=== PATIENT | female | born 1980 | race American Indian/Alaskan Native ===

== ENCOUNTER 2016-07-11 14:23 | Emergency (ER) | payer BC ==
[2016-07-11 14:58] LABS: Eosinophils % (Auto) 4.1 % (0.0-4.3); Hematocrit 37.8 % (30.3-42.9); Hemoglobin 11.6 gm/dl (10.1-14.3); Mean Corpuscular HGB Conc 31 % (30-34); Mean Corpuscular Volume 73 fl (79-97); Platelet Count 198 K/mm3 (140-440); Red Blood Count 5.21 M/mm3 (3.65-5.03); Red Cell Distribution Width 15.7 % (13.2-15.2); White Blood Count 4.8 K/mm3 (4.5-11.0)
[2016-07-11 15:18] LABS: Mean Corpuscular Hemoglobin 22 pg (28-32)
[2016-07-11 15:22] LABS: Anion Gap 17 mmol/L; BUN/Creatinine Ratio 13.33; Blood Urea Nitrogen 8 mg/dL (7-17); Calcium 9.1 mg/dL (8.4-10.2); Carbon Dioxide 24 mmol/L (22-30); Chloride 105.1 mmol/L (98-107); Creatine Kinase 111 units/L (30-135); Glucose 97 mg/dL (65-100); Lipase 30 units/L (13-60); Sodium 142 mmol/L (137-145)
[2016-07-11 15:24] LABS: Creatine Kinase MB < 1.0 ng/mL (0.0-4.0)
[2016-07-11 16:03] LABS: Bilirubin,Urine NEG (Negative); Blood,Urine SM (Negative); Ketones,Urine NEG (Negative); Leukocyte Esterase,Urine NEG (Negative); Mucus,Urine 3+ /HPF; Nitrite,Urine NEG (Negative); Protein,Urine <15 mg/dL mg/dL (Negative); Urobilinogen,Urine < 2.0 mg/dL (<2.0)
[2016-07-11] MEDS ORDERED: ZOFRAN ODT PO ONE (19:44)
[2016-07-11] MEDS ORDERED: MORPHINE IM ONE (19:44)
--- NOTE | 2016-07-11 19:48 | Emergency Department Report ---
HPI - General Chief Complaint: Chest Pain Time Seen by Provider: 07/11/16 19:32 - HPI HPI: The patient is a 35-year-old female presents for evaluation of chest pain. The patient reports chest pain for the past 2 days, exudates in severity, sharp in quality, right-sided in location, exacerbated with movement of the chest wall. The patient denies fever, cough, dyspnea, syncope, hemoptysis, unilateral leg swelling, oral contraceptive use, recent immobilization, history of DVT or PE, recent cancer. ED Past Medical Hx - Past Medical History Previous Medical History?: Yes Hx Headaches / Migraines: Yes Hx Psychiatric Treatment: Yes (Depression) Additional medical history: depression - Surgical History Past Surgical History?: Yes Additional Surgical History: x 2 - Social History Smoking Status: Never Smoker Substance Use Type: None - Medications Home Medications: Home Medications Medication Instructions Recorded Confirmed Last Taken Type Cyclobenzaprine HCl [Flexeril 5 MG 5 mg PO Q8HR PRN #15 tab 07/11/16 Unknown Rx TAB] Omeprazole Magnesium [PriLOSEC Otc] 20 mg PO QDAY #14 tablet. 07/11/16 Unknown Rx ED Review of Systems ROS: Stated complaint: CHEST PAINS Other details as noted in HPI Constitutional: denies: fever ENT: denies: throat or neck pain Respiratory: denies: cough, shortness of breath Cardiovascular: reports chest pain Endocrine: denies unexplained weight loss or gain Gastrointestinal: denies: abdominal pain, nausea Genitourinary: denies: dysuria Musculoskeletal: denies: leg swelling Skin: denies: rash Neurological: denies: headache Hematological/Lymphatic: denies: easy bleeding or easy bruising Psych: denies sadness or hopelessness Physical Exam - Physical Exam Vital Signs: Vital Signs 07/11/16 14:39 Temperature 98.1 F Pulse Rate 73 Respiratory 20 Rate Blood Pressure 102/70 O2 Sat by Pulse 100 Oximetry Physical Exam: General: well-nourished, well-developed, no acute distress Head: Normocephalic, atraumatic Eyes: normal sclera ENT: Mucous membranes are pink and moist Neck: trachea midline, neck supple, No neck stiffness, no cervical adenopathy Respiratory: Breath sounds equal bilaterally, no wheezing, rales, or rhonchi Cardio: S1 and S2 present, no murmurs, rubs, gallops, capillary refill is brisk Abdomen: Normoactive bowel sounds, soft abdomen, no rigidity, no guarding or rebound tenderness Chest WALL/Back: No tenderness to palpation of the chest wall, no CVA tenderness with percussion Musc: No pitting edema Skin: No rash Neuro: no facial drooping, normal speech Psych: Normal affect ED Course Vital Signs 07/11/16 14:39 Temperature 98.1 F Pulse Rate 73 Respiratory 20 Rate Blood Pressure 102/70 O2 Sat by Pulse 100 Oximetry ED Medical Decision Making - Lab Data Result diagrams: 07/11/16 14:47 07/11/16 14:47 - Medical Decision Making The patient was seen and examined by myself. The patient is placed on a surveillance monitor and continuous pulse ox. On initial evaluation, the patient was found to be in no distress. EKG was negative for findings suggestive of acute cardiac infarct. The patient is given an IM dose of morphine for her pain. Labs and imaging are obtained. Chest x-ray is negative for pneumothorax, focal consolidation, pulmonary vascular congestion, pleural effusion, or other obvious acute cardiopulmonary disease process. Lab results were non-concerning including levels of troponin, WBC, hemoglobin, hematocrit, electrolytes, renal function. The patient was reevaluated and reported that their symptoms were markedly improved. As the patient has a OMEGA risk score less than 2, and a well 's score less than 2 and is PERC negative, the patient is at low risk of ACS or pulmonary emboli etiology of their symptoms. The patient is stable for discharge with outpatient follow-up. The patient is given follow-up and return instructions. The patient expressed understanding and agreed with the plan. The patient is discharged in stable condition. Critical care attestation.: If time is entered above; I have spent that time in minutes in the direct care of this critically ill patient, excluding procedure time. ED Disposition Clinical Impression: Acute chest pain Disposition: DISCHARGED TO HOME OR SELFCARE Is pt being admited?: No Does the pt Need Aspirin: No Condition: Stable Instructions: Chest Pain (ED), Peptic Ulcer (ED), Costochondritis (ED) Prescriptions: Cyclobenzaprine HCl [Flexeril 5 MG TAB] 5 mg PO Q8HR PRN #15 tab PRN Reason: Pain Omeprazole Magnesium [PriLOSEC Otc] 20 mg PO QDAY #14 tablet. Referrals: PRIMARY CARE, [Primary Care Provider] - 3-5 Days Forms: Work/School Release Form(ED) Time of Disposition: 19:48 OMEGA score - Omega Score Age > 65: (0) No Aspirin use within the Past 7 Days: (0) No 3 or more CAD Risk Factors: (0) No 2 or more Angina events in past 24 hrs: (0) No Known CAD with more than 50% Stenosis: (0) No Elevated Cardiac Markers: (0) No ST Deviation Greater than 0.5mm: (0) No OMEGA Score: 0
[2016-07-11 21:32] VITALS: BP 112/86
--- NOTE | 2016-07-12 07:43 | XRay Report ---
ROUTINE CHEST, TWO VIEWS: HISTORY: chest pain. The trachea, heart, mediastinal contour, lung quezada and bony thorax are unremarkable. Mild dextrocurvature of the thoracic spine is noted. IMPRESSION: Mild scoliosis. Otherwise normal chest x-ray.
== END 2016-07-11 20:15 | disposition home or self-care (01) ==
LOC: ED 14:23
DX: R07.9 Chest pain, unspecified (principal); G43.909 Migraine, unspecified, not intractable, without status migrainosus; F32.9 Major depressive disorder, single episode, unspecified
CPT/HCPCS: 36415; 71020; 80048; 81001; 81025; 82550; 82553; 83690; 84484; 85025; 93005; 93010; 96372; 99285; J2270; Q0162

== ENCOUNTER 2018-09-15 16:41 | Emergency (ER) | payer BC, OTHER ==
[2018-09-15 17:02] VITALS: BP 106/76
--- NOTE | 2018-09-15 17:03 | Event Note ---
ED Screening Note Date of service: 09/15/18 Time: 17:02 ED Screening Note: This is a 37 y.o. F. that presents to the ER with dysuria, urinary frequency, back pain, and pelvic pressure. This initial assessment/diagnostic orders/clinical plan/treatment(s) is/are subject to change based on patients health status, clinical progression and re- assessment by fellow clinical providers in the ED. Further treatment and workup at subsequent clinical providers discretion. Patient/guardian urged not to elope from the ED as their condition may be serious if not clinically assessed and managed. Initial orders include: UA & hCG.
[2018-09-15 18:10] LABS: Bilirubin,Urine NEG (Negative); Blood,Urine NEG (Negative); Color,Urine Yellow (Yellow); Mucus,Urine FEW /HPF; Protein,Urine <15 mg/dL mg/dL (Negative); Urobilinogen,Urine < 2.0 mg/dL (<2.0)
[2018-09-15 18:33] LABS: HCG Qualitative,Urine Negative (Negative)
--- NOTE | 2018-09-15 21:40 | Emergency Department Report ---
ED Female HPI - General Chief complaint: Urogenital-Female Stated complaint: BACK PAIN/FREQUENT URINATION Time Seen by Provider: 09/15/18 17:02 Source: patient Mode of arrival: Ambulatory Limitations: No Limitations - History of Present Illness Initial comments: Patient is a 37 yo female who presents the emergency department with complaints of urinary frequency that began a few days ago. She has associated dysuria, lower back pain, vaginal irritation. She denies any vaginal discharge, lesions, blisters. She denies any past medical history or allergies medications. Patient states she thinks she has UTI. - Related Data Previous Rx's Medication Instructions Recorded Last Taken Type Cyclobenzaprine HCl [Flexeril 5 MG 5 mg PO Q8HR PRN #15 tab 07/11/16 Unknown Rx TAB] Omeprazole Magnesium [PriLOSEC Otc] 20 mg PO QDAY #14 tablet. 07/11/16 Unknown Rx Allergies Allergy/AdvReac Type Severity Reaction Status Date / Time No Known Allergies Allergy Unverified 09/15/18 16:45 ED Review of Systems ROS: Stated complaint: BACK PAIN/FREQUENT URINATION Other details as noted in HPI Comment: All other systems reviewed and negative ED Past Medical Hx - Past Medical History Hx Headaches / Migraines: Yes Hx Psychiatric Treatment: Yes (Depression) Additional medical history: depression - Surgical History Additional Surgical History: x 2 - Social History Smoking Status: Never Smoker - Medications Home Medications: Home Medications Medication Instructions Recorded Confirmed Last Taken Type Cyclobenzaprine HCl [Flexeril 5 MG 5 mg PO Q8HR PRN #15 tab 07/11/16 Unknown Rx TAB] Omeprazole Magnesium [PriLOSEC Otc] 20 mg PO QDAY #14 tablet. 07/11/16 Unknown Rx ED Physical Exam - General Limitations: No Limitations General appearance: alert, in no apparent distress - Head Head exam: Present: atraumatic, normocephalic - Eye Eye exam: Present: normal appearance, PERRL - Respiratory Respiratory exam: Absent: respiratory distress - Neurological Exam Neurological exam: Present: alert, oriented X3 - Psychiatric Psychiatric exam: Present: normal affect, normal mood ED Course Vital Signs 09/15/18 17:01 Temperature 97.9 F Pulse Rate 74 Respiratory 18 Rate Blood Pressure 106/76 O2 Sat by Pulse 97 Oximetry ED Medical Decision Making - Medical Decision Making Patient is a 37 yo female who presents the emergency department with complaints of urinary frequency that began a few days ago. She has associated dysuria, lower back pain, vaginal irritation. She denies any vaginal discharge, lesions, blisters. She denies any past medical history or allergies medications. Patient states she thinks she has UTI. Advised patient that her urine is completely normal. Discussed the patient that she would need a pelvic exam for further evaluation of her discomfort. Patient states I just an antibiotic and want to go home. I advised patient that we don't just give antibiotics and not know what is being treated. Patient refuses pelvic exam. I advised patient that leaving untreated can lead to PID and infertility. Advised patient that she would need to sign out AGAINST MEDICAL ADVICE. Witnessed by nurse. Patient refused to sign AMA form and walked out of emergency department. RN and myself signed AMA form but patient refused. Critical care attestation.: If time is entered above; I have spent that time in minutes in the direct care of this critically ill patient, excluding procedure time. ED Disposition Clinical Impression: Dysuria, Urinary frequency, Vaginal irritation Disposition: - LEFT AGAINST MED ADVICE Is pt being admited?: No Does the pt Need Aspirin: No Condition: Undetermined Referrals: QUANG MANCIA MD [Primary Care Provider] - [place] Forms: AMA Form Time of Disposition: 21:41 Print Language: ANDORRAN
== END 2018-09-15 22:20 | disposition left against medical advice (07) ==
LOC: ED 16:41
DX: M54.89 Other dorsalgia (principal); Z53.21 Procedure and treatment not carried out due to patient leaving prior to being seen by health care provider
CPT/HCPCS: 81001; 81025; 99283

== ENCOUNTER 2021-01-01 16:46 | Emergency (ER) | payer SELFPAY ==
[2021-01-01 17:20] VITALS: BP 113/71
[2021-01-01] MEDS ORDERED: dexAMETHasone 4 MG/ML VIAL IM ONE (17:31)
--- NOTE | 2021-01-01 17:32 | Emergency Department Report ---
Minor Respiratory - HPI Chief Complaint: Headache Stated Complaint: HEADACHE/LEG PAIN/LOW ENERGY Time Seen by Provider: 01/01/21 17:22 Duration: 3 Days Pain Location: Other Severity: mild Minor Respiratory: Yes Rhinorrhea, Yes Sore Throat, Yes Able to Tolerate Fluids, Yes Cough, No Ear Pain, No Sick Contacts, No Hemoptysis, No Chest Pain, No Shortness of Breath, No Fever Other History: 40 YO WITH SEVERAL DAY HX OF HEADACHE, NAUSEA, SORE THROAT, COUGH WORSE AT NIGHT. NO SOB. NO CP. NO FEVER OR CHILLS. OTC ALLERGY MEDS NOT HELPING. AMBULATORY AND NON ILL APPEARING ON EXAM ED Review of Systems ROS: Stated complaint: HEADACHE/LEG PAIN/LOW ENERGY Other details as noted in HPI Comment: All other systems reviewed and negative ED Past Medical Hx - Past Medical History Previous Medical History?: Yes Hx Headaches / Migraines: Yes Hx Psychiatric Treatment: Yes (Depression) Additional medical history: depression - Surgical History Past Surgical History?: Yes Additional Surgical History: x 2 - Family History Family history: no significant - Social History Smoking Status: Never Smoker Substance Use Type: None - Medications Home Medications: Home Medications Medication Instructions Recorded Confirmed Last Taken Type Amoxicillin [Trimox CAP] 500 mg PO BID #20 capsule 01/01/21 Unknown Rx Cetirizine HCl [ZyrTEC] 10 mg PO DAILY #30 capsule 01/01/21 Unknown Rx Fluticasone [Flonase] 1 spray NS QDAY #1 bottle 01/01/21 Unknown Rx predniSONE [Deltasone] 20 mg PO DAILY #5 tablet 01/01/21 Unknown Rx Minor Respiratory Exam - Exam General: Vital signs noted. No distress. Alert and acting appropriately. HEENT: Yes Pharyngeal Erythema, Yes Moist Mucous Membranes, Yes Rhinorrhea, Yes Frontal Tenderness, Yes Maxillary Tenderness, No Pharyngeal Exudates, No Conjuctival Injection Ear: Neither TM Bulge, Neither TM Erythema, Neither EAC Pain, Neither EAC Discharge Neck: Yes Supple, No Adenopathy Lungs: Yes Good Air Exchange, No Wheezes, No Ronchi, No Stridor, No Cough, No Labored Respirations, No Retractions, No Use of Accessory Muscles, No Other Abnormal Lung Sounds Heart: Yes Regular, No Murmur Abdomen: Yes Normal Bowel Sounds, No Tenderness, No Peritoneal Signs Skin: No Rash, No Edema Neurologic: Alert and oriented, no deficits. Musculoskeletal: Unremarkable. ED Course Vital Signs 01/01/21 17:17 Temperature 98.3 F Pulse Rate 73 Respiratory 16 Rate Blood Pressure 113/71 [Left] O2 Sat by Pulse 98 Oximetry ED Medical Decision Making - Medical Decision Making Vital Signs (72 hours) 01/01/21 17:17 Temperature 98.3 F Pulse Rate 73 Respiratory 16 Rate Blood Pressure 113/71 [Left] O2 Sat by Pulse 98 Oximetry SIMPLE URI DECADRON FOR COMFORT DC HOME WITH DC PLAN OF CARE INCLUDING FOLLOW UP, MEDS, DIET AND ACTIVITY PT VERBALIZES UNDERSTANDING OF PLAN OF CARE - Differential Diagnosis URI Critical care attestation.: If time is entered above; I have spent that time in minutes in the direct care of this critically ill patient, excluding procedure time. ED Disposition Clinical Impression: Sinusitis, Pharyngitis Disposition: 01 HOME / SELF CARE / HOMELESS Is pt being admited?: No Does the pt Need Aspirin: No Condition: Stable Instructions: Sinusitis, Adult, [id number] Additional Instructions: STAY WELL HYDRATED MEDS ORDERED TODAY FOLLOW UP WITH PCP FOR RECHECK NEXT WEEK REFERRAL BELOW MOTRIN OR TYLENOL FOR PAIN Referrals: SMILEY PALACIOS MD [Staff Physician] - 3-5 Days Time of Disposition: 17:29
== END 2021-01-01 18:22 | disposition home or self-care (01) ==
LOC: ED 16:46
DX: J32.9 Chronic sinusitis, unspecified (principal); J02.9 Acute pharyngitis, unspecified; G43.909 Migraine, unspecified, not intractable, without status migrainosus; F32.9 Major depressive disorder, single episode, unspecified; Z98.890 Other specified postprocedural states; Z72.89 Other problems related to lifestyle; Z79.899 Other long term (current) drug therapy
CPT/HCPCS: 99282

== ENCOUNTER 2021-10-22 16:03 | Emergency (ER) | payer SELFPAY ==
[2021-10-22 17:34] VITALS: BP 130/58
[2021-10-22 18:14] LABS: HCG Qualitative,Urine Negative (Negative)
[2021-10-22 18:29] LABS: Bacteria,Urine 4+ /HPF (Negative); Mucus,Urine FEW /HPF
[2021-10-22 18:53] LABS: Bilirubin,Urine Negative (Negative); Blood,Urine Negative (Negative); Color,Urine Yellow (Yellow)
== END 2021-10-23 01:55 | disposition left against medical advice (07) ==
LOC: ED 16:03
DX: R10.9 Unspecified abdominal pain (principal); M54.9 Dorsalgia, unspecified; Z53.21 Procedure and treatment not carried out due to patient leaving prior to being seen by health care provider
CPT/HCPCS: 81001; 81025; 87086